=== PATIENT | female | born 1950 | race African-American/Black ===

== ENCOUNTER 2016-07-20 14:24 | Inpatient (IN) | payer MEDICAID, OTHER ==
[~2016-07-20] VITALS: Ht 157.5 cm; Wt 68.0 kg
[2016-07-20 15:17] LABS: Basophils # (auto) 0.1 uL; Basophils % (auto) 0.7 % (0.0-2.0); DEFINITIVE VIEW TRANSMISSION; Eosinophils # (auto) 0 uL; Eosinophils % (auto) 0.1 % (0.0-7.0); Hemoglobin 14.4 g/dL (12.2-16.2); Lymphocytes # (auto) 1.5 uL; Lymphocytes % (auto) 13.7 % (10.0-50.0); Mean Corpuscular Hemoglobin 25.6 pg (28.0-32.0); Mean Corpuscular Hgb Conc. 32.7 g/dL (32.0-36.0); Mean Corpuscular Volume 78.2 fL (80.0-100.0); Mean Platelet Volume 8.4 fL (7.4-10.4); Monocytes # (auto) 0.5 uL; Monocytes % (auto) 4.7 % (0.0-12.0); Neutrophils % (auto) 80.8 % (37.0-80.0); Platelet Count (auto) 433 10^3/uL (140-450); White Blood Cell 11.1 10^3/uL (4.4-10.8)
[2016-07-20 15:29] LABS: Albumin 3.2 g/dL (3.4-5.0); BUN/Creatinine Ratio 7.3; Calcium 8.6 mg/dL (8.5-10.1)
[2016-07-20 15:34] LABS: Bilirubin, Total 0.7 mg/dL (0.2-1.0); Total Protein 6.2 g/dL (6.4-8.2)
[2016-07-20 15:59] LABS: Potassium 2.9 mmol/L (3.5-5.1)
[2016-07-20 16:02] LABS: Anisocytosis Slight; Hypochromia Slight; Platelet Estimate Adequate
[2016-07-20] MEDS ORDERED: POTASSIUM CHL 20 Meq TABLET PO ONE (16:30)
[2016-07-20] MEDS ORDERED: SODIUM CHLORIDE 0.9% 1,000 ML IV ONE (17:07)
[2016-07-20] MEDS ORDERED: PIPERACILLIN-TAZOB 3.375GM 100 ML IV ONE (17:15)
[2016-07-20] MEDS ORDERED: POTASSIUM CHL 10% (20 MEQ/15ML) ORAL SOLN GT ONE (17:15)
[2016-07-20] MEDS ORDERED: MORPHINE SULFATE 4 MG/ML SYRG IV ONE (17:15)
[2016-07-20] MEDS ORDERED: ONDANSETRON HCL 4 MG/2 ML VIAL IV ONE (17:15)
[2016-07-20] MEDS ORDERED: ENOXAPARIN SOD 80 MG/0.8ML SYRINGE SC ONE (17:15)
[2016-07-20] MEDS ORDERED: MORPHINE SULF INJ 2 MG/ML SYRINGE 1ML IV PRN (18:15)
[2016-07-20] MEDS ORDERED: NITROGLYCERIN 0.4 MG SL TAB SL PRN (18:15)
[2016-07-20] MEDS ORDERED: PROMETHAZINE HCL 25 MG/ML 1ML IV PRN (18:15)
[2016-07-20] MEDS ORDERED: ACETAMINOPHEN 500 MG TAB PO PRN (18:15)
[2016-07-20] MEDS ORDERED: LACTULOSE 20Gm/30ML SOLN PO PRN (18:15)
[2016-07-20] MEDS ORDERED: HYDROcodone-ACET 5/325MG TAB PO PRN (18:15)
[2016-07-20] MEDS: SODIUM CHLORIDE 0.9% 1,000 ML IV SCH (18:21)
[2016-07-20] MEDS ORDERED: ENOXAPARIN SOD 40 MG/0.4 ML SYRINGE SC SCH (18:23)
[2016-07-20] MEDS: PROMETHAZINE W/CODEINE 5 ML ORAL SYRUP PO PRN (21:12)
[2016-07-20] MEDS: METOPROLOL TARTRATE 25 MG TAB PO SCH (21:13)
[2016-07-20] MEDS: ATORVASTATIN 20 MG TAB PO SCH (21:13)
[2016-07-20] MEDS: FAMOTIDINE 20 MG TAB PO SCH (21:15)
[2016-07-20 22:00] VITALS: BP 121/67
[2016-07-20] MEDS: MORPHINE SULFATE 4 MG/ML SYRG IV PRN (22:16)
[2016-07-20 22:38] VITALS: BP 121/67
[2016-07-20 23:23] LABS: Urine Bilirubin Negative (Negative); Urine Blood Negative /uL (Negative); Urine Color Yellow (Yellow); Urine Glucose Normal (Normal); Urine Hyaline Cast MANY /lpf (0 - 2); Urine Ketone 1+ (Negative); Urine Mucus FEW (None Seen); Urine Nitrite Negative (Negative); Urine RBC 4 /hpf (0 - 4); Urine Squamous Epithelial Cell FEW /hpf (<5); Urine Urobilinogen Normal (Negative)
[2016-07-20] MEDS: TEMAZEPAM 15 MG CAP PO PRN (23:28)
[2016-07-21 05:08] VITALS: BP 139/76
[2016-07-21 05:54] LABS: Basophils # (auto) 0.1 uL; Basophils % (auto) 1.9 % (0.0-2.0); DEFINITIVE VIEW TRANSMISSION; Eosinophils # (auto) 0.1 uL; Eosinophils % (auto) 1.6 % (0.0-7.0); Hematocrit 42.2 % (36.0-46.0); Hemoglobin 13.4 g/dL (12.2-16.2); Lymphocytes # (auto) 2.2 uL; Lymphocytes % (auto) 31.7 % (10.0-50.0); Mean Corpuscular Hemoglobin 25.2 pg (28.0-32.0); Mean Corpuscular Hgb Conc. 31.8 g/dL (32.0-36.0); Mean Corpuscular Volume 79.2 fL (80.0-100.0); Mean Platelet Volume 8.3 fL (7.4-10.4); Monocytes # (auto) 0.4 uL; Monocytes % (auto) 5.2 % (0.0-12.0); Neutrophils # (auto) 4.1 uL; Neutrophils % (auto) 59.6 % (37.0-80.0); Platelet Count (auto) 363 10^3/uL (140-450); White Blood Cell 6.8 10^3/uL (4.4-10.8)
[2016-07-21] MEDS: SODIUM CHLORIDE 0.9% 1,000 ML IV SCH ×2 (06:09→16:25)
[2016-07-21 06:13] LABS: Red Cell Distribution Width 20.6 % (11.6-16.0)
[2016-07-21 06:14] LABS: Potassium 3.6 mmol/L (3.5-5.1)
[2016-07-21 06:15] LABS: Albumin 2.7 g/dL (3.4-5.0); BUN/Creatinine Ratio 9.5; Bilirubin, Total 0.5 mg/dL (0.2-1.0); Calcium 7.8 mg/dL (8.5-10.1); Total Protein 5.5 g/dL (6.4-8.2)
[2016-07-21 08:00] VITALS: BP 120/69
[2016-07-21 08:25] VITALS: BP 120/69
[2016-07-21 08:41] LABS: Anisocytosis Slight; Hypochromia Slight; Platelet Estimate Adequate
[2016-07-21] MEDS: MORPHINE SULFATE 4 MG/ML SYRG IV PRN ×4 (08:45→22:49)
[2016-07-21] MEDS: ASPirin 81 mg TAB PO SCH ×2 (08:45→08:59)
[2016-07-21] MEDS: ENALAPRIL MALEATE 10 MG TAB PO SCH (08:46)
[2016-07-21] MEDS: METOPROLOL TARTRATE 25 MG TAB PO SCH ×2 (08:46→21:41)
[2016-07-21] MEDS: PROMETHAZINE W/CODEINE 5 ML ORAL SYRUP PO PRN ×3 (08:46→21:42)
[2016-07-21] MEDS: NITROGLYCERIN 0.2MG/HR TOPICAL PATCH TD SCH (08:47)
[2016-07-21] MEDS: FAMOTIDINE 20 MG TAB PO SCH ×2 (08:47→21:42)
[2016-07-21] MEDS: LORazepam 0.5 MG TAB PO PRN (10:46)
[2016-07-21 12:30] VITALS: BP 109/80
[2016-07-21] MEDS: ENOXAPARIN SOD 40 MG/0.4 ML SYRINGE SC SCH (15:00)
[2016-07-21 16:27] VITALS: BP 115/70
[2016-07-21] MEDS: ATORVASTATIN 20 MG TAB PO SCH (21:41)
[2016-07-21 22:00] VITALS: BP 133/80
[2016-07-21] MEDS: TEMAZEPAM 15 MG CAP PO PRN (22:42)
[2016-07-22] MEDS: SODIUM CHLORIDE 0.9% 1,000 ML IV SCH ×4 (00:08→20:08)
[2016-07-22 05:00] VITALS: BP 129/77
[2016-07-22] MEDS: MORPHINE SULFATE 4 MG/ML SYRG IV PRN ×5 (05:02→22:56)
[2016-07-22 06:46] LABS: BUN/Creatinine Ratio 10.2; Calcium 8.6 mg/dL (8.5-10.1); Magnesium 2.2 mg/dL (1.6-2.6); Phosphorus 3.8 mg/dL (2.5-4.90); Potassium 4.1 mmol/L (3.5-5.1)
[2016-07-22 07:34] LABS: Basophils # (auto) 0 uL; Basophils % (auto) 0.5 % (0.0-2.0); DEFINITIVE VIEW TRANSMISSION; Eosinophils # (auto) 0.1 uL; Eosinophils % (auto) 1.1 % (0.0-7.0); Hematocrit 44.9 % (36.0-46.0); Hemoglobin 14.3 g/dL (12.2-16.2); Lymphocytes # (auto) 2.4 uL; Lymphocytes % (auto) 29.8 % (10.0-50.0); Mean Corpuscular Hemoglobin 25.3 pg (28.0-32.0); Mean Corpuscular Volume 79.2 fL (80.0-100.0); Monocytes # (auto) 0.3 uL; Monocytes % (auto) 4.4 % (0.0-12.0); Neutrophils # (auto) 5.1 uL; Neutrophils % (auto) 64.2 % (37.0-80.0); Platelet Count (auto) 386 10^3/uL (140-450); White Blood Cell 7.9 10^3/uL (4.4-10.8)
[2016-07-22 07:38] LABS: Red Cell Distribution Width 20.4 % (11.6-16.0)
[2016-07-22 07:48] LABS: Platelet Estimate Adequate
[2016-07-22 07:49] LABS: Anisocytosis Slight; Hypochromia Slight
[2016-07-22 08:00] VITALS: BP 162/98
[2016-07-22] MEDS: METOPROLOL TARTRATE 25 MG TAB PO SCH ×2 (09:30→21:24)
[2016-07-22] MEDS: FAMOTIDINE 20 MG TAB PO SCH ×2 (09:30→21:26)
[2016-07-22] MEDS: ENALAPRIL MALEATE 10 MG TAB PO SCH (09:31)
[2016-07-22] MEDS: NITROGLYCERIN 0.2MG/HR TOPICAL PATCH TD SCH (09:31)
[2016-07-22 10:18] VITALS: BP 162/98
[2016-07-22] MEDS: PROMETHAZINE W/CODEINE 5 ML ORAL SYRUP PO PRN ×2 (11:39→22:10)
[2016-07-22 14:29] VITALS: BP 124/87
[2016-07-22] MEDS: ENOXAPARIN SOD 40 MG/0.4 ML SYRINGE SC SCH (14:57)
[2016-07-22] MEDS: ATORVASTATIN 20 MG TAB PO SCH (21:24)
[2016-07-22] MEDS: TEMAZEPAM 15 MG CAP PO PRN (21:26)
[2016-07-22 22:00] VITALS: BP 159/98
[2016-07-23] MEDS: MORPHINE SULFATE 4 MG/ML SYRG IV PRN ×3 (03:15→22:03)
[2016-07-23 05:00] VITALS: BP 148/92
[2016-07-23] MEDS: SODIUM CHLORIDE 0.9% 1,000 ML IV SCH ×2 (05:12→16:08)
[2016-07-23 06:27] LABS: Basophils # (auto) 0 uL; Basophils % (auto) 0.5 % (0.0-2.0); DEFINITIVE VIEW TRANSMISSION; Eosinophils # (auto) 0.1 uL; Eosinophils % (auto) 1.8 % (0.0-7.0); Hematocrit 40.4 % (36.0-46.0); Hemoglobin 12.9 g/dL (12.2-16.2); Lymphocytes # (auto) 1.7 uL; Lymphocytes % (auto) 28.5 % (10.0-50.0); Mean Corpuscular Hemoglobin 25.2 pg (28.0-32.0); Mean Corpuscular Hgb Conc. 31.8 g/dL (32.0-36.0); Mean Corpuscular Volume 79.2 fL (80.0-100.0); Mean Platelet Volume 9.1 fL (7.4-10.4); Monocytes # (auto) 0.3 uL; Monocytes % (auto) 4.8 % (0.0-12.0); Neutrophils # (auto) 3.9 uL; Neutrophils % (auto) 64.4 % (37.0-80.0); Platelet Count (auto) 317 10^3/uL (140-450); White Blood Cell 6.1 10^3/uL (4.4-10.8)
[2016-07-23 06:30] LABS: Red Cell Distribution Width 20.2 % (11.6-16.0)
[2016-07-23 07:56] LABS: BUN/Creatinine Ratio 7.1; Calcium 8.6 mg/dL (8.5-10.1); Magnesium 2.1 mg/dL (1.6-2.6); Potassium 4.2 mmol/L (3.5-5.1)
[2016-07-23 09:00] VITALS: BP 149/86
[2016-07-23 09:00] LABS: Platelet Estimate Adequate
[2016-07-23 09:02] LABS: Anisocytosis Slight; Hypochromia Slight
[2016-07-23] MEDS: ENALAPRIL MALEATE 10 MG TAB PO SCH (09:14)
[2016-07-23] MEDS: METOPROLOL TARTRATE 25 MG TAB PO SCH ×2 (09:16→22:01)
[2016-07-23] MEDS: FAMOTIDINE 20 MG TAB PO SCH ×2 (09:16→22:01)
[2016-07-23] MEDS: NITROGLYCERIN 0.2MG/HR TOPICAL PATCH TD SCH (09:17)
[2016-07-23 12:41] VITALS: BP 153/87
[2016-07-23] MEDS ORDERED: IOHEXOL 350 MG/ML 100ML IJ ONE (13:31)
[2016-07-23] MEDS ORDERED: METOPROLOL TARTRATE 1MG/1ML-5ML VIAL IV ONE (13:36)
[2016-07-23] MEDS ORDERED: NITROGLYCERIN 0.4 MG SL TAB SL ONE (13:36)
[2016-07-23] MEDS ORDERED: VERAPAMIL 2.5MG/ML INJ 2ML VIAL IV ONE (13:48)
[2016-07-23 16:02] VITALS: BP 153/97
[2016-07-23] MEDS: ENOXAPARIN SOD 40 MG/0.4 ML SYRINGE SC SCH (16:27)
[2016-07-23 22:00] VITALS: BP 193/105
[2016-07-23] MEDS: ATORVASTATIN 20 MG TAB PO SCH (22:02)
[2016-07-23 23:00] VITALS: BP 182/104
[2016-07-24] MEDS: SODIUM CHLORIDE 0.9% 1,000 ML IV SCH ×3 (02:08→22:05)
[2016-07-24 05:00] VITALS: BP 158/84
[2016-07-24 06:33] LABS: Basophils # (auto) 0 uL; DEFINITIVE VIEW TRANSMISSION; Eosinophils # (auto) 0.1 uL; Hematocrit 43.8 % (36.0-46.0); Hemoglobin 14.2 g/dL (12.2-16.2); Lymphocytes # (auto) 1.6 uL; Lymphocytes % (auto) 20.9 % (10.0-50.0); Mean Corpuscular Hemoglobin 25.3 pg (28.0-32.0); Mean Corpuscular Hgb Conc. 32.4 g/dL (32.0-36.0); Mean Platelet Volume 9.6 fL (7.4-10.4); Monocytes # (auto) 0.3 uL; Monocytes % (auto) 4.1 % (0.0-12.0); Neutrophils # (auto) 5.5 uL; Platelet Count (auto) 352 10^3/uL (140-450); White Blood Cell 7.5 10^3/uL (4.4-10.8)
[2016-07-24 07:11] LABS: BUN/Creatinine Ratio 7.7; Calcium 8.8 mg/dL (8.5-10.1); Magnesium 2.3 mg/dL (1.6-2.6)
[2016-07-24 07:19] LABS: Red Cell Distribution Width 20.1 % (11.6-16.0)
[2016-07-24 08:00] VITALS: BP 156/85
[2016-07-24] MEDS: OLANZapine 5 MG TAB PO PRN ×2 (08:44→22:03)
[2016-07-24 08:51] VITALS: BP 144/76
[2016-07-24] MEDS: FAMOTIDINE 20 MG TAB PO SCH ×2 (09:56→22:01)
[2016-07-24] MEDS: METOPROLOL TARTRATE 25 MG TAB PO SCH ×2 (09:56→22:02)
[2016-07-24] MEDS: ENALAPRIL MALEATE 10 MG TAB PO SCH (09:57)
[2016-07-24] MEDS: NITROGLYCERIN 0.2MG/HR TOPICAL PATCH TD SCH (09:59)
[2016-07-24 11:35] LABS: Anisocytosis Slight; Platelet Estimate Adequate
[2016-07-24 11:36] LABS: Hypochromia Slight
[2016-07-24] MEDS: PROMETHAZINE W/CODEINE 5 ML ORAL SYRUP PO PRN (12:32)
[2016-07-24 13:00] VITALS: BP 153/88
[2016-07-24] MEDS: MORPHINE SULFATE 4 MG/ML SYRG IV PRN ×2 (13:59→22:03)
[2016-07-24] MEDS: ENOXAPARIN SOD 40 MG/0.4 ML SYRINGE SC SCH (15:02)
[2016-07-24 17:00] VITALS: BP 172/115
[2016-07-24] MEDS: ATORVASTATIN 20 MG TAB PO SCH (22:02)
[2016-07-24 22:51] VITALS: BP 162/65
[2016-07-25] VITALS (8 sets, daily range): BP systolic 134–179; BP diastolic 56–102
[2016-07-25] MEDS: SODIUM CHLORIDE 0.9% 1,000 ML IV SCH ×3 (07:24→17:44)
[2016-07-25] MEDS: METOPROLOL TARTRATE 25 MG TAB PO SCH ×2 (09:28→22:33)
[2016-07-25] MEDS: FAMOTIDINE 20 MG TAB PO SCH ×2 (09:28→22:33)
[2016-07-25] MEDS: NITROGLYCERIN 0.2MG/HR TOPICAL PATCH TD SCH (09:28)
[2016-07-25] MEDS: ENALAPRIL MALEATE 10 MG TAB PO SCH (09:29)
[2016-07-25] MEDS: OLANZapine 5 MG TAB PO PRN (10:31)
[2016-07-25] MEDS ORDERED: PROMETHAZINE HCL 25 MG/ML 1ML IV PRN (13:15)
[2016-07-25] MEDS: ENOXAPARIN SOD 40 MG/0.4 ML SYRINGE SC SCH (14:40)
[2016-07-25] MEDS: PROMETHAZINE W/CODEINE 5 ML ORAL SYRUP PO PRN (14:40)
[2016-07-25] MEDS: ATORVASTATIN 20 MG TAB PO SCH (22:33)
[2016-07-25] MEDS: MORPHINE SULFATE 4 MG/ML SYRG IV PRN (22:33)
[2016-07-26] MEDS: SODIUM CHLORIDE 0.9% 1,000 ML IV SCH (04:08)
[2016-07-26 05:45] VITALS: BP 163/105
[2016-07-26 09:11] VITALS: BP 176/67
[2016-07-26] MEDS: NITROGLYCERIN 0.2MG/HR TOPICAL PATCH TD SCH (09:40)
[2016-07-26] MEDS: METOPROLOL TARTRATE 25 MG TAB PO SCH (09:40)
[2016-07-26] MEDS: FAMOTIDINE 20 MG TAB PO SCH (09:40)
[2016-07-26] MEDS: LORazepam 0.5 MG TAB PO PRN (09:40)
[2016-07-26] MEDS: ENALAPRIL MALEATE 10 MG TAB PO SCH (09:40)
[2016-07-26 11:48] VITALS: BP 167/97
[2016-07-26] MEDS ORDERED: PROCHLORPERAZINE EDISYLATE 5 MG/ML 2ML VIAL IV PRN (14:00)
== END 2016-07-26 15:14 | disposition other institution (70) | DRG 190 ==
LOC: ER 14:25 → TELE 14:26 → TELE-EAST 20:20 → EAST 07-26 06:32
PROVIDERS: ADMIT Internal Medicine; ATTEND Internal Medicine
DX: I21.4 Non-ST elevation (NSTEMI) myocardial infarction (principal); N17.9 Acute kidney failure, unspecified; F11.20 Opioid dependence, uncomplicated; J44.1 Chronic obstructive pulmonary disease with (acute) exacerbation; I10 Essential (primary) hypertension; M94.0 Chondrocostal junction syndrome [Tietze]; J06.9 Acute upper respiratory infection, unspecified; F23 Brief psychotic disorder; E87.6 Hypokalemia; F17.210 Nicotine dependence, cigarettes, uncomplicated; F31.9 Bipolar disorder, unspecified; G89.4 Chronic pain syndrome; Z59.0 Homelessness; Z80.1 Family history of malignant neoplasm of trachea, bronchus and lung; Z82.3 Family history of stroke
CPT/HCPCS: 36415; 71010; 74176; 75574; 80048; 80053; 80061; 81001; 82378; 82550; 83690; 83735; 84100; 84484; 85025; 85379; 85652; 86141; 87040; 87081; 93005; 94761; 96361; 96365; 96372; 96375; G0434; J2405; J2543

== ENCOUNTER 2016-08-03 18:26 | Emergency (ER) | payer MEDICAID ==
[~2016-08-03] VITALS: Ht 157.5 cm; Wt 66.2 kg
[2016-08-03 20:53] VITALS: BP 128/70
== END 2016-08-03 20:56 | disposition home or self-care (01) ==
LOC: ER 18:30
DX: I10 Essential (primary) hypertension (principal); F17.210 Nicotine dependence, cigarettes, uncomplicated; R23.8 Other skin changes; Z88.8 Allergy status to other drugs, medicaments and biological substances; Z76.0 Encounter for issue of repeat prescription